=== PATIENT | female | born 1965 | race Caucasian/White ===

== ENCOUNTER 2017-09-16 06:13 | Emergency (ER) | payer MEDICAID ==
[~2017-09-16] VITALS: Ht 162.6 cm; Wt 65.9 kg
[2017-09-16 08:17] VITALS: BP 116/66
== END 2017-09-16 08:20 | disposition home or self-care (01) ==
LOC: EMS 06:15
DX: M62.838 Other muscle spasm (principal); J32.9 Chronic sinusitis, unspecified
CPT/HCPCS: 99283